=== PATIENT | female | born 1990 | race Native Hawaiian/Other Pacific Islander ===

== ENCOUNTER 2016-12-11 05:39 | Emergency (ER) | payer OTHER ==
[~2016-12-11] VITALS: Ht 162.6 cm; Wt 97.1 kg
[~2016-12-11 05:39] MED LIST: BUPROPN HCL300 MG PO
[2016-12-11 05:43] VITALS: BP 104/57; TEMP 97.9
[2016-12-11] MEDS ORDERED: MULTI ADULT GUM1 CHW PO (05:56)
== END 2016-12-11 05:55 | disposition home or self-care (01) ==
LOC: ED 05:39
DX: K08.89 Other specified disorders of teeth and supporting structures (principal); Z33.1 Pregnant state, incidental
CPT/HCPCS: 99281

== ENCOUNTER 2022-04-09 02:06 | Emergency (ER) | payer OTHER ==
[~2022-04-09] VITALS: Ht 165.1 cm; Wt 98.0 kg
[~2022-04-09 02:06] MED LIST changes: +MULTI ADULT GUM1 CHW PO
[2022-04-09 02:37] VITALS: BP 126/77; TEMP 97.9
== END 2022-04-09 02:37 | disposition home or self-care (01) ==
LOC: ED 02:06
DX: A08.39 Other viral enteritis (principal)
CPT/HCPCS: 99281

== ENCOUNTER 2022-04-21 16:04 | Emergency (ER) | payer OTHER ==
[~2022-04-21] VITALS: Ht 165.1 cm; Wt 98.0 kg
[2022-04-21 16:10] VITALS: BP 149/96; TEMP 98.2
== END 2022-04-21 17:30 | disposition home or self-care (01) ==
LOC: ED 16:04
DX: L73.2 Hidradenitis suppurativa (principal)
CPT/HCPCS: 99281

== ENCOUNTER 2022-05-05 21:32 | Emergency (ER) | payer OTHER ==
[~2022-05-05] VITALS: Ht 165.1 cm; Wt 97.5 kg
[2022-05-05 21:40] VITALS: BP 173/106; TEMP 98.1
== END 2022-05-05 22:40 | disposition home or self-care (01) ==
LOC: ED 21:32
DX: A08.39 Other viral enteritis (principal)
CPT/HCPCS: 99282

== ENCOUNTER 2022-05-15 15:12 | Emergency (ER) | payer OTHER ==
[~2022-05-15] VITALS: Ht 165.1 cm; Wt 77.1 kg
[2022-05-15 15:19] VITALS: BP 144/88; TEMP 98.1
== END 2022-05-15 16:16 | disposition home or self-care (01) ==
LOC: ED 15:12
DX: T78.49XA Other allergy, initial encounter (principal); X58.XXXA Exposure to other specified factors, initial encounter; Y92.89 Other specified places as the place of occurrence of the external cause
CPT/HCPCS: 96372; 99282; J2920

== ENCOUNTER 2022-05-28 10:54 | Emergency (ER) | payer OTHER ==
[~2022-05-28] VITALS: Ht 165.1 cm; Wt 90.7 kg
[2022-05-28 11:04] VITALS: BP 123/49
== END 2022-05-28 11:06 | disposition left against medical advice (07) ==
LOC: ED 10:54
DX: T40.1X1A Poisoning by heroin, accidental (unintentional), initial encounter (principal); X58.XXXA Exposure to other specified factors, initial encounter; Y92.89 Other specified places as the place of occurrence of the external cause; Z53.29 Procedure and treatment not carried out because of patient's decision for other reasons
CPT/HCPCS: 36415; 96360; 96372; 99285; J2310